=== PATIENT | female | born 1960 | race Caucasian/White ===

== ENCOUNTER 2016-05-27 16:17 | Emergency (ER) | payer MEDICAID ==
[2016-05-27 16:41] VITALS: PULSE 66; TEMP 99.1
[2016-05-27] MEDS ORDERED: HYDROmorphONE/DILAUDID 1 MG/ML SYR IVP ONE (17:28)
--- NOTE | 2016-05-27 17:29 | DX ---
Chest and Right RIBS, 4 views HISTORY: Trauma, pain, fall on ice. Shortness of breath. FINDINGS: Cardiac silhouette within normal range. No pneumonia, pleural effusion or pneumothorax. Tho racic scoliosis with multilevel moderate to severe degenerative disk disease. There is displaced fracture of the posterior aspect of the right sixth rib with minimal displacement. Is suggestion of nondisplaced fractures of the fourth, fifth and seventh ribs posteriorly. The mid a xillary line suggestion of an eighth rib nondisplaced fracture. IMPRESSION: 1. Multiple right fourth through eighth rib fractures. 2. No definite pulmonary contusion. 3. No pneumothorax. 4. Recommend CT chest imaging. Findings and recommendations discussed with Dr. Irlanda Alcala at 1720 hour, today.
[2016-05-27] MEDS ORDERED: KETOROLAC 30 MG/1 ML SDV IVP ONE (17:34)
--- NOTE | 2016-05-27 17:36 | UCPHY ---
H & P Patient Type: Established Smoking Status: Never smoked Time Seen by Provider: 05/27/16 17:20 HPI/ROS: HPI: 55-year-old female presents to urgent care with chief concern right posterior rib pain with shortness of breath. Symptoms onset suddenly 45 minutes prior to arrival when she slipped on the ice, fell landing on her right flank. May have struck her head. Denies dizziness, headache, visual changes, neck pain , chest pain, nausea, vomiting. Reports 8/10 right flank pain that is worse with movement and deep breath. Aggravating factor movement. No alleviating factor. ROS: (Irlanda Alcala) Past Medical/Surgical History: Right shoulder surgery, coli cyst deck to me, tonsillectomy. (Irlanda Alcala) Social History: , lives with daughter, nurse's ortho assistant (Irlanda Alcala) Physical Exam: VS: Reviewed by me, see NN. General: Well developed, well nourished, in no acute distress. Head: Normalocephalic. Atraumatic. Face: Atraumatic. EENT: PERRLA. EOMI. No nystagmus. TMs intact bilaterally with normal landmarks. No rhinnorhea, nasal passages clear. Oropharynx without trauma or malocclusion. Neck: Supple, nontender. No midline tenderness. No tenderness with range of motion. Chest: Nontender, no subcutaneous air palpable. Respiratory: Breathing unlabored. Breath sounds equal bilaterally and clear to auscultation. No adventitious sounds. CV: Chest nontender, atraumatic. Heart rate regular. No murmur, distal pulses 2+ bilaterally. Brisk cap refill all extremities. GI: Abdomen soft, nontender. Nondistended. Bowel sounds normoactive and positive x4 quadrants. : Right flank pain Neuro: Alert. Oriented x 3. Speech clear. Nonfocal cranial nerves throughout. Sensation intact all extremities. Normal motor. Strength equal in 5 + all extremities. Skin: Skin warm, dry, intact. Atraumatic. Extremities: Atraumatic. Normal range of motion. Musculoskeletal: No extremity or joint pain. Right flank with tenderness approximately ribs 4 through 8. Reproducible. No obvious swelling or hematoma present. (Irlanda Alcala) Constitutional: Initial Vital Signs Temperature (C) 37.3 C 05/27/16 16:39 Heart Rate 66 02/02/17 16:39 Respiratory Rate 20 05/27/16 16:39 Blood Pressure 167/66 H 05/27/16 16:39 O2 Sat (%) 93 05/27/16 16:39 O2 Delivery Mode Room Air O2 (L/minute) 2 Allergies/Adverse Reactions: codeine [Codeine] Allergy (Severe, Verified 05/27/16 16:41) Rash Penicillins Allergy (Severe, Verified 05/27/16 16:41) Rash Home Medications: Medication Instructions Recorded Citalopram Hydrobromide 40 mg PO DAILY 05/10/12 [Citalopram HBr 40 MG] rOPINIRole HCL [Requip 2mg (RX)] 2 mg PO 05/10/12 Metoprolol Succinate 09/16/14 Norvasc 09/16/14 LORAZEPAM 12/30/15 [place] 5/325 (*) 12/30/15 ZOLPIDEM TARTRATE 12/30/15 Medical Decision Making - Diagnostics Imaging: Chest and Right RIBS, 4 views HISTORY: Trauma, pain, fall on ice. Shortness of breath. FINDINGS: Cardiac silhouette within normal range. No pneumonia, pleural effusion or pneumothorax. Thoracic scoliosis with multilevel moderate to severe degenerative disk disease. There is displaced fracture of the posterior aspect of the right sixth rib with minimal displacement. Is suggestion of nondisplaced fractures of the fourth, fifth and seventh ribs posteriorly. The mid axillary line suggestion of an eighth rib nondisplaced fracture. IMPRESSION: 1. Multiple right fourth through eighth rib fractures. 2. No definite pulmonary contusion. 3. No pneumothorax. 4. Recommend CT chest imaging. Dictated By: Riky Tom Chest CT: Indication: Trauma, fracture of ribs 4 through 8, final report pending at time this dictation. No pneumothorax. Right small effusion Ribs for 3 fractured. Right nodular opacity upper lobe, discussed with patient. Discussed with patient that she needs follow-up CT in 6 months. (Irlanda Alcala) ED Course/Re-evaluation: 55-year-old female presents to urgent care after a fall, impacting the right flank. Reports may have struck her head. She has no tenderness to the head. No headache, visual changes, dizziness, nausea vomiting present. There is no midline cervical spine tenderness. She has full range of motion of the cervical spine without tenderness. As her x-ray shows likely rib fractures ribs 4 through 8 posteriorly, CT with contrast ordered. Labs pending. Patient given 0.5 mg IV Dilaudid and 30 mg IV Toradol. Have counseled her regarding need for incentive spirometer. I have counseled her regarding need for repeat chest CT in 6 months as she was a former smoker with a right upper lobe nodular opacity seen on chest CT today. She has been counseled regarding need for prompt follow-up with primary care tomorrow for recheck without fail. She agrees to do so. She has been counseled regarding need to return to emergency department overnight should she developed worsening shortness of breath, vomiting, or other concerning symptoms. vitals stable on discharge. (Irlanda Alcala) Differential Diagnosis: Differential diagnosis includes but is not limited to rib fracture, rib contusion, pneumothorax, hemopneumothorax, pulmonary contusion, head injury, intracranial bleed, cervical spine injury (Irlanda Alcala) Other Provider: The patient was evaluated and managed by the nurse practitioner, Irlanda Alcala.. My co-signature indicates that I have reviewed this chart and I agree with the findings and plan of care as documented. I am the secondary supervising physician. (Mehnaz West) - Data Points Laboratory Results: Laboratory Results 05/27/16 17:40 05/27/16 17:40 05/27/16 17:40 WBC 8.79 10^3/uL (3.80-9.50) RBC 4.71 10^6/uL (4.18-5.33) Hgb 14.4 g/dL (12.6-16.3) Hct 43.0 % (38.0-47.0) MCV 91.3 fL (81.5-99.8) MCH 30.6 pg (27.9-34.1) MCHC 33.5 g/dL (32.4-36.7) RDW 12.1 % (11.5-15.2) Plt Count 347 10^3/uL (150-400) MPV 8.8 fL (8.7-11.7) Neut % (Auto) 60.9 % (39.3-74.2) Lymph % (Auto) 29.1 % (15.0-45.0) Leake % (Auto) 5.8 % (4.5-13.0) Eos % (Auto) 2.3 % (0.6-7.6) Baso % (Auto) 0.6 % (0.3-1.7) Nucleat RBC Rel Count 0.0 % (0.0-0.2) Absolute Neuts (auto) 5.36 10^3/uL (1.70-6.50) Absolute Lymphs (auto) 2.56 10^3/uL (1.00-3.00) Absolute Monos (auto) 0.51 10^3/uL (0.30-0.80) Absolute Eos (auto) 0.20 10^3/uL (0.03-0.40) Absolute Basos (auto) 0.05 10^3/uL (0.02-0.10) Absolute Nucleated RBC 0.00 10^3/uL (0-0.01) Immature Gran % 1.3 H % (0.0-1.1) Immature Gran # 0.11 H 10^3/uL (0.00-0.10) PT 11.7 L SEC (12.0-15.0) INR 0.87 (0.83-1.16) APTT 25.7 SEC (23.0-38.0) Sodium 138 mEq/L (134-144) Potassium 3.8 mEq/L (3.5-5.2) Chloride 104 mEq/L (97-110) Carbon Dioxide 27 mEq/l (22-31) Anion Gap 7 mEq/L (8-16) BUN 10 mg/dL (7-23) Creatinine 0.5 L mg/dL (0.6-1.0) Estimated GFR > 60 Glucose 152 H mg/dL (70-100) Calcium 9.1 mg/dL (8.5-10.4) Medications Given: Discontinued Medications Acetaminophen/Hydrocodone Bitart ([place] 5/325mg Prepack#6) 1 btl TAKEHOME EDNOW ONE Stop: 05/27/16 19:04 Last Admin: 05/27/16 19:24 Dose: 1 btl Hydromorphone HCl (Dilaudid) 0.5 mg IVP EDNOW ONE Stop: 05/27/16 17:29 Last Admin: 05/27/16 18:00 Dose: 0.5 mg Ketorolac Tromethamine (Toradol) 30 mg IVP EDNOW ONE Stop: 05/27/16 17:35 Last Admin: 05/27/16 18:00 Dose: 30 mg Departure - Departure Disposition: Home, Routine, Self-Care Clinical Impression: Ribs, multiple fractures Condition: Good Instructions: Rib Fracture (ED) Additional Instructions: Plan: Incentive spirometer 10 breaths every hour while awake without fail to help prevent pneumonia You may use 600 mg of ibuprofen every 6 hours for fever, inflammation, or pain. Always take ibuprofen with food and stay well hydrated while taking. Do not exceed the maximum allowable dose in a 24 hour period which is 2400 mg. 1-2 [place] every 4-6 hours as needed for severe pain--Never drink or drive while taking this medication. This medication impairs decision making capacity so do not work or sign important documents while taking. This medication its constipating so drink plenty of fluids and consider an [id number] stool softener such as docusate sodium (Colace) while taking this medication. This medication has addictive properties. You should use the least amount for the shortest amount of time. [facility] do not refill narcotic pain medication prescriptions. This is a hospital policy. You will need to follow up as indicated for recheck for further narcotic refills. Imperative that you follow up tomorrow for recheck with primary care without fail with primary care--When you call to schedule appointment in the morning, please let the office know you are an "ER follow up" appointment" Repeat CT of the chest in 6 months to monitor the nodular opacity seen in the right upper lobe, as discussed. Referrals: Lexy Valentin MD [Primary Care Provider] - As per Instructions - PQRS PQRS Measurement: Not applicable (Irlanda Alcala)
[2016-05-27] MEDS ORDERED: ONDANSETRON 4 MG/2 ML VIAL ONE (17:41)
[2016-05-27 17:46] LABS: % IMMATURE GRANULYOCYTES 1.3 % (0.0-1.1); ABSOLUTE IMMATURE GRANULOCYTES 0.11 10^3/uL (0.00-0.10); ADD DIFF? NO; ADD MORPH? NO; ADD SCAN? NO; ATYPICAL LYMPHOCYTE FLAG 10 (0-99); FRAGMENT RBC FLAG 0 (0-99); HEMOGLOBIN 14.4 g/dL (12.6-16.3); LEFT SHIFT FLG 10 (0-99); LIPEMIA HEMOLYSIS FLAG 80 (0-99); MEAN CELL HEMOGLOBIN 30.6 pg (27.9-34.1); MEAN CELL HEMOGLOBIN CONCENTR. 33.5 g/dL (32.4-36.7); MEAN CELL VOLUME 91.3 fL (81.5-99.8); MEAN PLATELET VOLUME 8.8 fL (8.7-11.7); PLATELET CLUMPS FLAG 0 (0-99); PLATELET COUNT 347 10^3/uL (150-400); RED BLOOD CELL COUNT 4.71 10^6/uL (4.18-5.33); RED CELL DISTRIBUTION WIDTH 12.1 % (11.5-15.2)
[2016-05-27 17:56] LABS: INR 0.87 (0.83-1.16); PROTIME(PATIENT) 11.7 SEC (12.0-15.0)
[2016-05-27 17:57] LABS: APTT 25.7 SEC (23.0-38.0)
[2016-05-27] MEDS ORDERED: IOPAMIDOL (ISOVUE-300) 100 ML BTL IV ONE (18:08)
[2016-05-27 18:10] LABS: ANION GAP 7 mEq/L (8-16); CALCIUM 9.1 mg/dL (8.5-10.4); CARBON DIOXIDE 27 mEq/l (22-31); CHLORIDE 104 mEq/L (97-110); CREATININE 0.5 mg/dL (0.6-1.0); GLOMERULAR FILTRATION RATE > 60; GLUCOSE 152 mg/dL (70-100); POTASSIUM 3.8 mEq/L (3.5-5.2); SODIUM 138 mEq/L (134-144)
[2016-05-27] MEDS ORDERED: HYDROCOD/APAP 5/325 PREPACK#6 BTL TAKEHOME ONE (19:03)
[2016-05-27 19:26] VITALS: BP 136/59; RESP 18
[2016-05-27 19:51] VITALS: O2SAT 96
--- NOTE | 2016-05-28 10:07 | CT ---
CT Chest With Contrast History: Shortness of breath, rib fractures after fall on ice today. Comparison: Rib series same day at 1706 hours. Technique: Axial enhanced images were obtained through the chest following the uneventful intravenous administration of 90 mL Isovue-300. Coronal MIPs were performed. Creatinine is 0.5. Dose reduction techniques were utilized. Findings: There is mild peribronchial thickening. There is no pneumothorax. Trace right pleural fluid is present. A 5 mm subpleural right upper lobe opacity (series 3 image 50) has a linear appearance o n sagittally reformatted images, suggesting this is more likely related to atelectasis than a true pu lmonary nodule. Heart size is normal. The aorta is normal caliber without dissection. Mildly prominen t right hilar lymph nodes are noted. Nondisplaced lateral right fourth through eighth rib fractures a re present. Scoliosis of the lower thoracic spine is noted. Pneumobilia is present, likely related to previous sphincterotomy. Diffuse fatty infiltration is pres ent in the liver. The gallbladder is surgically absent. Impression: 1. Nondisplaced lateral right fourth through eighth rib fractures. 2. Trace right pleural effusion. 3. Bronchitis with mildly prominent right hilar lymph nodes, which are nonspecific but could be react wendy. 4. Subpleural 5 mm nodular opacity in the right upper lobe. While this is most likely related to maddie gn atelectasis this could less likely represent a true nodule. If the patient is a nonsmoker with no history of malignancy, unenhanced low dose chest CT is recommended for follow up in 12 months. If th e patient is a smoker or has a history of malignancy, follow up CT is recommended in 6-12 months, the n at 18-24 months from the initial study if no change. 5. Additional findings as above. Findings discussed with Irlanda Alcala today at 1855 hours.
== END 2016-05-27 19:45 | disposition home or self-care (01) ==
LOC: CED 16:17
DX: S22.41XA Multiple fractures of ribs, right side, initial encounter for closed fracture (principal); W00.0XXA Fall on same level due to ice and snow, initial encounter; Z88.0 Allergy status to penicillin; Z88.5 Allergy status to narcotic agent
CPT/HCPCS: 71101-PO; 71260-PO; 80048-PO; 85025-PO; 85610-PO; 85730-PO; 96361-PO; 96374-PO; 96375-PO; 99215-PO; G0463-PO; J1170; J1885; J2405; Q9967

== ENCOUNTER 2016-07-04 22:02 | Emergency (ER) | payer MEDICAID ==
[2016-07-04 22:24] VITALS: RESP 18; TEMP 98.4
[2016-07-04 23:05] VITALS: BP 180/84; PULSE 102; O2SAT 92
--- NOTE | 2016-07-04 23:05 | UCPHY ---
H & P Patient Type: Established Chief Complaint Nursing Narrative: R RIB PAIN Time Seen by Provider: 07/04/16 22:16 HPI/ROS: Rib pain is her chief complaint. She explains a 5 weeks ago she fell on ice verses a concrete drain pipe and sustained for rib fractures on the right side. She was seen here for this and chest x-ray and CT scan revealed 4th through 7th rib fractures. He is read as fractures and 1 location in those ribs. Patient is treated with Sunol and ibuprofen in initially she had been improving but starting 4 days ago with sneeze she developed abrupt worsening of the chest pain. Since then she is unable to control the chest pain with Sunol. She describes the pain as severe and worse with deep breath cough 1st knees. She has occasional mild dry cough over the past couple days but no other pulmonary symptoms. Source: Patient Exam Limitations: No limitations - Personal History Current Tetanus/Diphtheria Vaccine: Yes Tetanus Vaccine Date: 2008 - Medical/Surgical History PMH: For through 7th right rib fractures as detailed in HPI 5 weeks ago. Hypertension Hx Asthma: No Hx Chronic Respiratory Disease: No Hx Diabetes: No Hx Cardiac Disease: No Hx Renal Disease: No Hx Cirrhosis: No Hx Alcoholism: No Hx HIV/AIDS: No Hx Splenectomy or Spleen Trauma: No Other PMH: PCP Homero. Rocio /Shoulder surg r shoulder. gb tonsils - Family History Significant Family History: No pertinent family hx - Social History Smoking Status: Never smoked Alcohol Use: Occasionally Drug Use: None Additional Social History: Patient is an STAFF RESEARCH SCIENTIST - Physical Exam Exam: Her vital signs are normal with exception of an O2 sat of 94%. She has respiratory rate of 18 is breathing comfortably General Appearance: Alert, no distress. Eyes: Pupils equal and round no pallor or injection. ENT, Mouth: Mucous membranes moist. Respiratory: On chest wall inspection posteriorly appears to be a subtle concavity corresponding with the area of pain and tenderness-right posterior thorax corresponding to 4 7th rib region. There is no paradoxical motion with breaths . No rales or rhonchi. Appreciate no significant decrease in breath sounds. Cardiovascular: Regular rate and rhythm. Gastrointestinal: Abdomen is soft and nontender, no masses, bowel sounds normal. Neurological: Alert with no focal deficits. Skin: Warm and dry, no rashes. Musculoskeletal: Neck is supple nontender. Extremities are symmetrical, full range of motion. Psychiatric: Mood and affect are normal DIFFERENTIAL DIAGNOSIS: After history and physical exam differential diagnosis was considered for displaced rib fractures, pneumothorax, pneumonia, hemothorax Constitutional: Initial Vital Signs Temperature (C) 36.9 C 07/04/16 22:19 Heart Rate 92 07/04/16 22:19 Respiratory Rate 18 07/04/16 22:19 Blood Pressure 141/94 H 07/04/16 22:19 O2 Sat (%) 94 07/04/16 22:19 O2 Delivery Mode Room Air Allergies/Adverse Reactions: codeine [Codeine] Allergy (Severe, Verified 05/27/16 16:41) Rash Penicillins Allergy (Severe, Verified 05/27/16 16:41) Rash Home Medications: Medication Instructions Recorded Citalopram Hydrobromide 40 mg PO DAILY 05/10/12 [Citalopram HBr 40 MG] rOPINIRole HCL [Requip 2mg (RX)] 2 mg PO 05/10/12 Metoprolol Succinate 09/16/14 Norvasc 09/16/14 LORAZEPAM 12/30/15 Sunol 5/325 (*) 12/30/15 ZOLPIDEM TARTRATE 12/30/15 Albuterol Hfa Anes Only [Proair 2 puffs IH Q4 PRN #1 mdi 07/04/16 Hfa Icu (*)] HYDROmorphone HCL [Dilaudid 2 mg 2 - 4 mg PO Q4 PRN #20 tab 07/04/16 (*)] Ondansetron Odt [Zofran Odt] 4 - 8 mg PO Q4PRN PRN #8 tab 07/04/16 Medical Decision Making - Diagnostics Imaging: Chest x-ray: For 3 7th right rib fractures with new displacement of the 6th and 7th rib fractures compared to the previous chest x-ray I also spoke with Dr. Garcia-radiologist regarding this chest x-ray and he notes posterior components to these rib fractures so fractures 4th through 7th rib in 2 places that was not noted on the initial chest x-ray or CT scan. ED Course/Re-evaluation: 10 mg of morphine IM for pain control with good relief. Discussion: Technically this patient has potential flow chest with rib fractures in 2 places. However 5 weeks out she is doing quite well clinically. I suspect that when she sneezed 4 days ago she displaced 6th and 7th rib and has more pain due to this. However, no evidence on review of the chest x-ray of new pneumothorax, pneumonia, effusion or other complicating factors. I think with adequate pain control this patient will do well. I suggested switched to Dilaudid. She requests some antiemetic to take 1 Dilaudid she has had nausea from that medication in the past. I also provided General surgery and cardiothoracic surgery follow-up phone numbers if she feels she is not improving for further for evaluation. She understands the need to go the emergency department if she develops any respiratory distress, hemoptysis or other new symptoms. - Data Points Medications Given: Discontinued Medications Morphine Sulfate (Morphine) 10 mg IM EDNOW ONE Stop: 07/04/16 22:23 Last Admin: 07/04/16 22:48 Dose: 10 mg Ondansetron HCl (Zofran Odt 4 Mg Prepack#2) 1 btl TAKEHOME EDNOW ONE Stop: 07/04/16 23:11 Last Admin: 07/04/16 23:15 Dose: 1 btl Departure - Departure Disposition: Home, Routine, Self-Care Clinical Impression: Multiple rib fractures involving four or more ribs Condition: Good Instructions: Rib Fracture (ED) Additional Instructions: Diagnosis: 4-7 rib fractures in 2 places Plan: Continue ibuprofen. Take Dilaudid in addition for pain control as needed. No driving, alcohol or come Dilaudid. Take a stool softener while on this medication to prevent constipation Albuterol if needed for cough. Follow up with surgeon for further evaluation for any ongoing symptoms are improving with the Dilaudid. Go to the emergency department if you develop shortness of breath, coughing blood, fevers or other concerns Referrals: NONE *PRIMARY CARE P,. [Primary Care Provider] - As per Instructions Semaj Hayes DO [Doctor of Osteopathy] - As per Instructions Alex Stroud MD [Medical Doctor] - As per Instructions Prescriptions: Albuterol Hfa Anes Only [Proair Hfa Icu (*)] 2 puffs IH Q4 PRN #1 mdi PRN Reason: Wheezing HYDROmorphone HCL [Dilaudid 2 mg (*)] 2 - 4 mg PO Q4 PRN #20 tab PRN Reason: Pain, Breakthrough Ondansetron Odt [Zofran Odt] 4 - 8 mg PO Q4PRN PRN #8 tab PRN Reason: Vomiting - PQRS PQRS Measurement: NA
[2016-07-04] MEDS ORDERED: ONDANSETRON 4MG PREPACK#2 BTL TAKEHOME ONE (23:10)
== END 2016-07-04 23:07 | disposition home or self-care (01) ==
LOC: CED 22:02
DX: S22.41XD Multiple fractures of ribs, right side, subsequent encounter for fracture with routine healing (principal); W00.0XXA Fall on same level due to ice and snow, initial encounter
CPT/HCPCS: 71020-PO; 99214-PO; G0463-PO

== ENCOUNTER → 2016-08-03 | Outpatient (CLI) | payer MEDICAID | LOC: CIMAGING 11:06 | PROVIDERS: ATTEND Family Medicine | DX: S22.41XD Multiple fractures of ribs, right side, subsequent encounter for fracture with routine healing (principal) | CPT/HCPCS: 71101-PO ==

== ENCOUNTER → 2017-01-24 | Outpatient (CLI) | payer MEDICAID | LOC: CIMAGING 14:01 | PROVIDERS: ATTEND Family Medicine | DX: J40 Bronchitis, not specified as acute or chronic (principal); M41.84 Other forms of scoliosis, thoracic region; Z87.81 Personal history of (healed) traumatic fracture | CPT/HCPCS: 71020-PO ==

== ENCOUNTER 2018-05-17 20:25 | Emergency (ER) | payer MEDICAID ==
[2018-05-17] MEDS ORDERED: ASPIRIN 81 MG CHEWABLE TAB PO ONE (21:03)
[2018-05-17] MEDS ORDERED: ASPIRIN 81 MG CHEWABLE TAB ONE (21:03)
[2018-05-17 21:04] LABS: PLATELET COUNT 336 10^3/uL (150-400)
--- NOTE | 2018-05-17 22:31 | EDPHY ---
H & P Stated Complaint: CP X 1 WEEK MIDSTERNAL RADIATING TO JAW X 1 WEEK WITH NAUSEA Time Seen by Provider: 05/17/18 20:31 HPI/ROS: 57 yo F with mid chest pain radiating to mid jaw multiple times this week, generally lasting less than 5 minutes with no particular provoking factors though today it occured while she was having an argument No pain at present, no nausea, no vomiting, no shortness of breath. Negative angiogram 10 years ago, and negative stress test 1 year ago. Pt smokes , has hx htn, and one parent had CHF. Review of systems General no fever no chills no weakness HEENT no eye pain no eye discharge. No eye redness, no sore throat Respiratory no cough, no shortness of breath Cardiac pos chest pain, no peripheral edema GI no abdominal pain, no diarrhea, no constipation, no nausea, no vomiting no flank pain, no hematuria, no dysuria Musculoskeletal no myalgias, no joint pain Heme no easy bruising, no easy bleeding Endo no polyuria, no polydipsia Skin no rashes, no pruritus Neuro no syncope, no dizziness, no headaches Psych is no suicidal ideation, no homicidal ideation Source: Patient, Family Exam Limitations: No limitations - Personal History Current Tetanus Diphtheria and Acellular Pertussis (TDAP): Yes Tetanus Vaccine Date: 2008 - Medical/Surgical History Hx Asthma: No Hx Chronic Respiratory Disease: No Hx Diabetes: No Hx Cardiac Disease: Yes Hx Renal Disease: No Hx Cirrhosis: No Hx Alcoholism: No Hx HIV/AIDS: No Hx Splenectomy or Spleen Trauma: No Other PMH: PCP Homero. Pancreatic CA/R shoulder surg/shadia/tonsillectomy/ thyroid surg/HTN/RLS/arthritis/cardiac cath - Family History Significant Family History: Heart disease - Social History Smoking Status: Current every day smoker Alcohol Use: Occasionally Drug Use: None - Physical Exam Exam: 57-year-old female alert and oriented no acute distress nontoxic appearance, no diaphoresis, afebrile HEENT atraumatic normocephalic, extraocular muscles intact, anicteric Oropharynx negative for erythema negative exudate, tolerating her own secretions Neck supple no meningismus Lungs clear to auscultation bilaterally Heart regular rate and rhythm without murmur rub or gallop Abdomen nondistended normoactive bowel sounds soft nontender Back no CVA tenderness, no step-offs, no spinal tenderness Extremities no cyanosis clubbing or edema Neuro alert and oriented, no focal deficits Constitutional: Initial Vital Signs Temperature (C) 37.1 C 05/17/18 20:34 Heart Rate 89 05/17/18 20:34 Respiratory Rate 23 H 05/17/18 20:34 Blood Pressure 176/78 H 05/17/18 20:34 O2 Sat (%) 93 05/17/18 20:34 O2 Delivery Mode Nasal Cannula O2 (L/minute) 2 Allergies/Adverse Reactions: codeine [Codeine] Allergy (Severe, Verified 05/17/18 20:32) Rash Penicillins Allergy (Severe, Verified 05/17/18 20:32) Rash Home Medications: Medication Instructions Recorded Citalopram Hydrobromide 40 mg PO DAILY 05/10/12 [Citalopram HBr 40 MG] rOPINIRole HCL [Requip 2mg (RX)] 2 mg PO 05/10/12 Metoprolol Succinate 09/16/14 Norvasc 09/16/14 [place] 5/325 (*) 12/30/15 ZOLPIDEM TARTRATE 12/30/15 Albuterol Hfa Anes Only [Proair 2 puffs IH Q4 PRN #1 mdi 07/04/16 Hfa Icu (*)] Medical Decision Making - Diagnostics Imaging Results: Imaging Impressions Chest X-Ray 05/17/18 20:33 Impression: Mild peribronchial thickening which can be seen with airways disease/bronchitis. ED Course/Re-evaluation: Patient seen and evaluated for chest pain radiating to her mid jaw. No pain or symptoms at present. Given 4 baby aspirin., CXR no pneumonia, no cm, no effusion airways dz troponin neg troponin at 2 hours neg EKG nsr, one pvc, no signs of ischemia HEART SCORE 3-4 Discussed the negative results, and that there is still a 1/100 risk of a future heart event. I gave the patient the option of admission overnight for observation, or discharge and to contact her pcp in the morning to arrange stress test. She understands if she has recurrent pain that she will need to go to the Emergency Department.\ Imp Chest pain Plan Home F/U [place] Differential Diagnosis: Differential diagnosis considered but not limited to: Myocardial infarction, angina, acute coronary syndrome, pulmonary embolus, pericardial effusion, pneumothorax, pneumonia - Data Points Laboratory Results: Laboratory Results 05/17/18 20:37 05/17/18 20:37 05/17/18 05/17/18 05/17/18 21:17 20:46 20:37 WBC RBC Hgb Hct MCV MCH MCHC RDW Plt Count MPV Neut % (Auto) Lymph % (Auto) [place] % (Auto) Eos % (Auto) Baso % (Auto) Nucleat RBC Rel Count Absolute Neuts (auto) Absolute Lymphs (auto) Absolute Monos (auto) Absolute Eos (auto) Absolute Basos (auto) Absolute Nucleated RBC Immature Gran % Immature Gran # POC Sodium 117 mEq/L L* mEq/L (135-145) Sodium 137 mEq/L mEq/L (135-145) POC Potassium 2.7 mEq/L L* mEq/L (3.3-5.0) Potassium 4.2 mEq/L mEq/L (3.5-5.2) POC Chloride 82.0 mEq/L L mEq/L (97-110) Chloride 105 mEq/L mEq/L (97-110) Carbon Dioxide 24 mEq/l mEq/l (22-31) POC Total CO2 20 mEq/L L mEq/L (22-31) Anion Gap 8 mEq/L mEq/L (6-14) POC BUN 8 mg/dL mg/dL (7-23) BUN 13 mg/dL mg/dL (7-23) Creatinine 0.6 mg/dL mg/dL (0.6-1.0) POC Creatinine 0.5 mg/dL L mg/dL (0.6-1.0) Estimated GFR > 60 Glucose 118 mg/dL H mg/dL (70-100) POC Glucose 94 mg/dL mg/dL (70-100) POC Calcium 8.1 mg/dL L mg/dL (8.5-10.4) Calcium 9.9 mg/dL mg/dL (8.5-10.4) POC Troponin I 0.01 ng/mL ng/mL (0.00-0.08) 05/17/18 20:37 WBC 9.60 10^3/uL H 10^3/uL (3.80-9.50) RBC 5.56 10^6/uL H 10^6/uL (4.18-5.33) Hgb 17.2 g/dL H g/dL (12.6-16.3) Hct 51.6 % H % (38.0-47.0) MCV 92.8 fL fL (81.5-99.8) MCH 30.9 pg pg (27.9-34.1) MCHC 33.3 g/dL g/dL (32.4-36.7) RDW 13.0 % % (11.5-15.2) Plt Count 336 10^3/uL 10^3/uL (150-400) MPV 8.9 fL fL (8.7-11.7) Neut % (Auto) 51.3 % % (39.3-74.2) Lymph % (Auto) 39.0 % % (15.0-45.0) [place] % (Auto) 6.5 % % (4.5-13.0) Eos % (Auto) 2.1 % % (0.6-7.6) Baso % (Auto) 0.9 % % (0.3-1.7) Nucleat RBC Rel Count 0.0 % % (0.0-0.2) Absolute Neuts (auto) 4.93 10^3/uL 10^3/uL (1.70-6.50) Absolute Lymphs (auto) 3.74 10^3/uL H 10^3/uL (1.00-3.00) Absolute Monos (auto) 0.62 10^3/uL 10^3/uL (0.30-0.80) Absolute Eos (auto) 0.20 10^3/uL 10^3/uL (0.03-0.40) Absolute Basos (auto) 0.09 10^3/uL 10^3/uL (0.02-0.10) Absolute Nucleated RBC 0.00 10^3/uL 10^3/uL (0-0.01) Immature Gran % 0.2 % % (0.0-1.1) Immature Gran # 0.02 10^3/uL 10^3/uL (0.00-0.10) POC Sodium Sodium POC Potassium Potassium POC Chloride Chloride Carbon Dioxide POC Total CO2 Anion Gap POC BUN BUN Creatinine POC Creatinine Estimated GFR Glucose POC Glucose POC Calcium Calcium POC Troponin I Medications Given: Discontinued Medications Aspirin (Aspirin) 324 mg PO EDNOW ONE Stop: 05/17/18 21:04 Last Admin: 05/17/18 21:05 Dose: 324 mg Point of Care Test Results: Chemistry 05/17/18 05/17/18 21:17 20:46 POC Sodium 117 mEq/L L* mEq/L (135-145) POC Potassium 2.7 mEq/L L* mEq/L (3.3-5.0) POC Chloride 82.0 mEq/L L mEq/L (97-110) POC Total CO2 20 mEq/L L mEq/L (22-31) POC BUN 8 mg/dL mg/dL (7-23) POC Creatinine 0.5 mg/dL L mg/dL (0.6-1.0) POC Glucose 94 mg/dL mg/dL (70-100) POC Calcium 8.1 mg/dL L mg/dL (8.5-10.4) POC Troponin I 0.01 ng/mL ng/mL (0.00-0.08) D-Dimer D-Dimer Collection Date 05/17/18 D-Dimer Collection Time 20:40 D-Dimer (ng/ml) <100 Departure - Departure Disposition: Home, Routine, Self-Care Clinical Impression: Chest pain Condition: Good Instructions: Chest Pain (ED) Referrals: Lexy Valentin MD [Primary Care Provider] - As per Instructions
--- NOTE | 2018-05-17 22:58 | CPEKG ---
Test Reason : OPEN Blood Pressure : / mmHG Vent. Rate : 083 BPM Atrial Rate : 083 BPM P-R Int : 115 ms QRS Dur : 097 ms QT Int : 381 ms P-R-T Axes : 040 074 047 degrees QTc Int : 448 ms Sinus rhythm Ventricular premature complex Confirmed by Mehnaz West ([id number]) on 05/17/2018 10:57:14 PM Referred By: Mehnaz West Confirmed By:Mehnaz West
[2018-05-17 23:11] VITALS: BP 158/76
== END 2018-05-17 23:11 | disposition home or self-care (01) ==
LOC: CED 20:25
DX: J98.09 Other diseases of bronchus, not elsewhere classified (principal); I10 Essential (primary) hypertension; Z82.49 Family history of ischemic heart disease and other diseases of the circulatory system
CPT/HCPCS: 71046-PO; 80048-ER; 84484-ER

== ENCOUNTER 2018-09-11 19:19 | Emergency (ER) | payer MEDICAID ==
--- NOTE | 2018-09-11 20:16 | EDPHY ---
H & P Time Seen by Provider: 09/11/18 19:31 HPI/ROS: CHIEF COMPLAINT: Abdominal pain HISTORY OF PRESENT ILLNESS: Patient states she has pain in the left upper quadrant/lower chest since Tuesday evening. She states prior to the onset of pain she was planting galindo and vegetables in the yd with her daughter. Around 10:00 p.m. When she was cleaning up the kitchen she turned and had a sudden onset of sharp pain under or at the left ribcage. She denies any direct trauma. She has had no fevers or chills. She has had no cough. She states that it hurts to move or to take a deep breath. It makes it hard to find a comfortable position. She did try to [employer] yesterday and ibuprofen today which may have helped a little bit but not much. There has been some nausea this afternoon and she states she feels shaky and clammy today. REVIEW OF SYSTEMS: Constitutional: No fever, no chills. Eyes: No discharge. ENT: No sore throat. Cardiovascular: No chest pain, no palpitations. Respiratory: No cough, no shortness of breath. Pain with respiration. Gastrointestinal: Abdominal pain per HPI Genitourinary: No dysuria. Musculoskeletal: No back pain. Skin: No rashes. Neurological: No headache. General Appearance: Alert, no distress. Eyes: Pupils equal and round no pallor or injection. ENT, Mouth: Mucous membranes moist. Respiratory: There are no retractions, lungs are clear to auscultation. Quite point tender to palpation at the left lower rib margin. Cardiovascular: Regular rate and rhythm. Gastrointestinal: Abdomen is soft and nontender, no masses, bowel sounds normal. Large right upper quadrant surgical scar. Well-healed. Neurological: Awake, alert, no focal neurologic deficits. Skin: Warm and dry, no rashes. Musculoskeletal: Neck is supple nontender. Extremities are symmetrical, full range of motion, no edema. Psychiatric: Patient is oriented X 3, there is no agitation. Medical/surgical history: Hypertension, RLS, arthritis, surgeries include Whipple surgery in 1988 for pancreatic cancer, right shoulder surgery, cholecystectomy, tonsillectomy. Social history: Quit tobacco 4 months ago. Denies drugs or ETOH. Smoking Status: Current every day smoker Constitutional: Initial Vital Signs Temperature (C) 36.6 C 09/11/18 19:34 Heart Rate 66 05/20/19 19:34 Respiratory Rate 20 09/11/18 19:34 Blood Pressure 168/64 H 09/11/18 19:34 O2 Sat (%) 91 L 09/11/18 19:34 O2 Delivery Mode Room Air Allergies/Adverse Reactions: codeine [Codeine] Allergy (Severe, Verified 05/17/18 20:32) Rash Penicillins Allergy (Severe, Verified 05/17/18 20:32) Rash Home Medications: Medication Instructions Recorded Citalopram Hydrobromide 40 mg PO DAILY 05/10/12 [Citalopram HBr 40 MG] rOPINIRole HCL [Requip 2mg (RX)] 2 mg PO 05/10/12 Metoprolol Succinate 09/16/14 Norvasc 09/16/14 [employer] 5/325 (*) 12/30/15 ZOLPIDEM TARTRATE 12/30/15 Albuterol Hfa Anes Only [Proair 2 puffs IH Q4 PRN #1 mdi 07/04/16 Hfa Icu (*)] Celexa 09/11/18 Medical Decision Making Differential Diagnosis: Differential diagnosis includes but is not limited to pneumonia, pulmonary embolism, chest wall pain, musculoskeletal strain. After evaluation history and physical exam high suggestive of muscle wall strain as quite point tender and reproduces symptoms precisely. No evidence of cardiopulmonary cause. Very low suspicion for intra-abdominal cause. Discussed conservative treatments such as ice and ibuprofen. Reviewed return precautions in detail. Stable for discharge. Departure - Departure Disposition: Home, Routine, Self-Care Clinical Impression: Acute chest wall pain Condition: Good Instructions: Chest Pain (ED) Additional Instructions: Use ice and ibuprofen as discussed. Use the incentive spirometer 10 times an hour while awake for the next 5-7 days. Follow up with her primary care physician as needed and return to the emergency department if you develop fevers , worsening shortness of breath or other concerning new symptoms Referrals: Lexy Valentin MD [Primary Care Provider] - As per Instructions
[2018-09-11 20:51] VITALS: BP 157/88
== END 2018-09-11 20:49 | disposition home or self-care (01) ==
LOC: CED 19:19
DX: R07.89 Other chest pain (principal)
CPT/HCPCS: 99282-ER